=== PATIENT | female | born 1985 | race Caucasian/White ===

== ENCOUNTER 2018-01-08 21:18 | Emergency (ER) | payer OTHER ==
[2018-01-08 22:17] LABS: HCG,QUALITATIVE URINE POSITIVE (NEGATIVE)
[2018-01-08 22:19] LABS: SQUAMOUS EPITHIAL 1 /hpf (0-5); URINE BACTERIA RARE (<OCC); URINE BILIRUBIN NEGATIVE (NEGATIVE); URINE BLOOD 1+ (NEGATIVE); URINE CLARITY Clear (Clear); URINE COLOR Colorless (YELLOW); URINE GLUCOSE (UA) NORMAL (Normal); URINE LEUKOCYTE ESTERASE NEG Leu/uL (Negative); URINE PROTEIN NEGATIVE (NEGATIVE); URINE UROBILINOGEN NORMAL mg/dL (0.2-1.0)
[2018-01-08 22:51] LABS: BASO % 0.4 % (0.0-2.0); EOS % 0.5 % (0.0-4.0); HEMOGLOBIN 11.4 g/dL (11.0-16.0); LYMPH # 1.8 K/uL (1.0-4.3); MEAN CELL VOLUME 81.3 fL (81.0-99.0); MEAN CORPUSCULAR HEMOGLOBIN 28.2 pg (27.0-31.0); MEAN CORPUSCULAR HGB CONC 34.7 g/dL (33.0-37.0); MEAN PLATELET VOLUME 8.1 fL (7.2-11.7); MONO # 0.6 K/uL (0.0-0.8); MONO % 9.2 % (0.0-10.0); NEUT # 3.9 K/uL (1.8-7.0); NEUT % 61.9 % (50.0-75.0); NRBC % 0.1 % (0.0-2.0); RBC 4.05 Mil/uL (3.80-5.20); WHITE BLOOD COUNT 6.3 K/uL (4.8-10.8)
[2018-01-08 23:04] LABS: ALB/GLOB RATIO 1.4 (1.0-2.1); ALBUMIN 4.4 g/dL (3.5-5.0); ALT/SGPT 40 U/L (9-52); AST/SGOT 23 U/L (14-36); BLOOD UREA NITROGEN 10 mg/dL (7-17); CALCIUM 9.2 mg/dl (8.6-10.4); GFR AFRICAN-AMERICAN > 60; GFR NON-AFRICAN AMERICAN > 60
[2018-01-09 00:26] VITALS: RESP 20; O2SAT 98
--- NOTE | 2018-01-09 00:33 | C.PDOC ---
Time Seen by Provider: 01/08/18 22:07 Chief Complaint (Nursing): Female Genitourinary History Per: Patient Onset/Duration Of Symptoms: Hrs (tonight) Current Symptoms Are (Timing): Still Present Severity: Mild Quality Of Discomfort: Cramping Additional History Per: Prior Records Abnormal Vaginal Bleeding: Yes Past Medical History Reviewed: Historical Data, Nursing Documentation, Vital Signs Vital Signs: Last Vital Signs Temp 98.8 F 01/09/18 00:25 Pulse 71 01/09/18 00:25 Resp 20 01/09/18 00:25 BP 116/79 01/09/18 00:25 Pulse Ox 98 01/09/18 00:33 - Medical History PMH: No Chronic Diseases Surgical History: No Surg Hx Family History: States: Unknown Family Hx - Social History Hx Tobacco Use: No Hx Alcohol Use: No Hx Substance Use: No - Immunization History Hx Tetanus Toxoid Vaccination: Yes Hx Influenza Vaccination: No Hx Pneumococcal Vaccination: No Review Of Systems Except As Marked, All Systems Reviewed And Found Negative. Constitutional: Negative for: Fever, Weakness Cardiovascular: Negative for: Chest Pain Respiratory: Negative for: Shortness of Breath Gastrointestinal: Negative for: Vomiting Genitourinary: Positive for: Vaginal Bleeding (spotting), Pelvic Pain (mild). Negative for: Dysuria Musculoskeletal: Negative for: Neck Pain Skin: Negative for: Rash Neurological: Negative for: Weakness, Numbness Physical Exam - Physical Exam Appears: Non-toxic, No Acute Distress Skin: Normal Color, Warm, Dry Head: Atraumatic, Normacephalic Eye(s): bilateral: PERRL, EOMI Neck: Normal ROM, Supple Cardiovascular: Rhythm Regular Respiratory: Normal Breath Sounds, No Accessory Muscle Use Gastrointestinal/Abdominal: Soft, No Tenderness Back: No CVA Tenderness Extremity: Normal ROM Neurological/Psych: Oriented x3, Normal Motor, Normal Sensation ED Course And Treatment - Laboratory Results Result Diagrams: 01/08/18 22:47 01/08/18 22:47 Urine POC: Positive O2 Sat by Pulse Oximetry: 98 Pulse Ox Interpretation: Normal Disposition - Disposition Disposition Time: 01:00 Condition: STABLE - Clinical Impression Clinical Impression: Vaginal bleeding during Physician Patient Turnover Patient Signed Over To: Ramona Lovell Handoff Comments: to f/up pelvic US
[2018-01-09 03:23] VITALS: BP 120/80; PULSE 78; TEMP 98
--- NOTE | 2018-01-10 11:10 | US ---
Date of service: 01/08/2018 PROCEDURE: OB Pelvic Ultrasound HISTORY: bleeding/pain, r/o ectopic LMP: 11/03/2017 COMPARISON: None available. FINDINGS: UTERUS: Gestational sac: Single intrauterine gestation. Heart rate: 168 bpm. age (Ultrasound estimated): 8 weeks 4 days 0 weeks 4 day Lashawn-gestational hemorrhage: There is a subchorionic hemorrhage measures 1.2 x 1.8 x0.7 centimeter. Date of delivery (Ultrasound estimated) : 08/16/2018 Uterus measures 9.8 x 7.3 x 7.9 cm. Normal in size and appearance. CERVIX: Measures 3.4 cm. Long and closed. No cervical abnormality seen. RIGHT OVARY: Measures 3.2 x 2.5 x 1.7 cm. No mass lesion. Normal flow. LEFT OVARY: Measures 3.7 x 2.4 x 2.8 cm. No solid mass. Normal flow. There is cyst seen at the left adnexa measures 2.1 x 1.2 x 1.1 centimeter likely represent corpus luteum cyst. FREE FLUID: None. OTHER FINDINGS: None. IMPRESSION: Single intrauterine live with ultrasound estimated gestational age of 8 weeks 4 days 0 weeks 4 days. Estimated date of delivery by ultrasound is 08/16/2018. Small subchorionic hemorrhage measures 1.2 x 1.8 x 0.7 centimeter. Left ovarian corpus luteum cyst. Preliminary report was submitted by [facility].
== END 2018-01-09 03:22 | disposition home or self-care (01) ==
LOC: C.ER 21:18
DX: O46.8X1 Other antepartum hemorrhage, first trimester (principal); Z3A.08 8 weeks gestation of pregnancy